=== PATIENT | male | born 1960 | race Caucasian/White ===

== ENCOUNTER 2024-08-02 10:08 | Emergency (ER) | payer MEDICARE ==
[~2024-08-02] VITALS: Ht 170.2 cm; Wt 59.0 kg
--- NOTE | 2024-08-02 11:17 | ERN ---
ED Note History of Present Illness Stated Complaint: PENIS PROBLEM X 4 MONTHS Chief Complaint: Penis Problem Time Seen by MD: 10:43 Dictation: 64-year-old male presents to the ED for evaluation of penile problem onset four months ago. Patient reports bombs, discolored rolls and warrants on his penis stating he was diagnosed with genital warts and was given a cream that is not working. Allergies: Coded Allergies: No Known Allergies (Unverified Allergy, Unknown, 08/02/24) Past Medical History Past Medical History: No Pertinent History Surgical History: Cholecystectomy Surgical History Other: BACK SX Review of System Dictation Constitutional: Negative for fever,chills, and weight loss Eyes: Negative for injury, pain,redness, and discharge ENT: Negative for injury,pain or swelling Cardiovascular: Negative for chest pain, palpitations, and edema Respiratory: Negative for shortness of breath, cough, and wheezing, Abdomen/GI: Negative for abdominal pain, nausea, vomiting, diarrhea, and constipation Back: Negative for injury and pain : Positive for penile problem Negative for injury, bleeding and discharge MS/Extremity: Negative for injury and deformity Skin: Negative for rash, and discoloration Neuro: Negative for headache, weakness, numbness, tingling, and seizure Psych: Negative for suicide ideation, homicidal ideation, and hallucinations Initial Vital Sign VS Vital Signs Date Time Temp Pulse Resp B/P (MAP) Pulse Ox O2 Delivery O2 Flow Rate FiO2 08/02/24 10:11 98.2 75 16 147/104 98 Room Air 0 Physical Exam Dictation General: awake, alert, NAD Head/Face: Normocephalic, atraumatic Eyes: PERRL, EOMI, vision at baseline ENT: oral cavity clear, TMs clear, no signs of infection Neck: Trachea midline, supple, no nuchal rigidity Cardiovascular: RRR, normal S1/S2, No MRGs, no JVD Respiratory: CTAB, no respiratory distress, No rales or wheezes Abdomen: Soft, non-tender, non-distended, normal bowel sounds, no guarding or rebound. Skin: Warm, dry, normal turgor, no rash : Multiple lesion over the shaft of the penis which are papular (HPV- like appearance) MS/Extremity: Pulses equal, no cyanosis, neurovascular intact, FROM Neuro: COAx4, GCS 15, strength 5/5, CN 2-12 intact, normal cerebellar exam, nor mal gait, Psych: Normal behavior, mood, and affect normal ED Course ED Course Vital Signs Date Time Temp Pulse Resp B/P (MAP) Pulse Ox O2 Delivery O2 Flow Rate FiO2 08/02/24 10:11 98.2 75 16 147/104 98 Room Air 0 Medical Decision Making MDM MDM: Differential diagnosis: HPV penile wart, penile problem Risk of complication and/or morbidity or mortality of patient management: None Medications-Per medication reconciliation Need for hospitalization: Patient does not meet criteria for hospitalization. Need for emergency major/minor surgery: No There are no social concerns with this patient. Prescription drug management Prescriptions will include symptomatic care I independently interpreted the test that were performed, results were reviewed by me and considered findings on radiology if ordered. DX & DISP Disposition: Discharge Departure Impression: Primary Impression: Penile wart Condition: Stable Referrals: NONE (PCP) MIRNA CHAO MD Time of Disposition: 11:17 MAHAMED KELLY MD Aug 02, 2024 11:17
[2024-08-02 11:30] VITALS: BP 135/79; PULSE 77; RESP 18; TEMP 97.9; O2SAT 99
== END 2024-08-02 11:31 | disposition home or self-care (01) ==
LOC: EDH 10:08
DX: B07.8 Other viral warts (principal); Z90.49 Acquired absence of other specified parts of digestive tract
CPT/HCPCS: 99281